=== PATIENT | male | born 1960 | race Caucasian/White ===

== ENCOUNTER 2019-06-24 05:30 | Inpatient (IN) | payer MEDICAID, OTHER ==
[~2019-06-24] VITALS: Ht 172.7 cm; Wt 67.1 kg
[2019-06-24] MEDS ORDERED: VANCOMYCIN PER PHARMACY MC ONE (06:00)
[2019-06-24] MEDS ORDERED: SODIUM CHLORIDE FLUSH 10ML SYR IVF ONE (06:00)
[2019-06-24] MEDS ORDERED: PIPERACILLIN/TAZO/PMX 3.375GM 50 ML IVPB ONE (06:00)
[2019-06-24] MEDS ORDERED: PIPERACILLIN/TAZO/PMX 3.375GM 50 ML ONE (06:10)
[2019-06-24] MEDS ORDERED: VANCOMYCIN 1,200 MG in SODIUM CHLORIDE 0.9% 250 ML IV ONE (06:30)
--- NOTE | 2019-06-24 06:32 | NUR ---
IV STARTED. AWAITING SECOND BC BEFORE STARTING ABX
[2019-06-24 06:34] LABS: BASOPHILS # (AUTO) 0.05 x10^3/uL (0-0.1); BASOPHILS % (AUTO) 0 % (0-1); EOSINOPHILS # (AUTO) 0.21 x10^3/uL (0-0.4); EOSINOPHILS % (AUTO) 2 % (1-7); LYMPHOCYTES # (AUTO) 1.69 x10^3/uL (1-3.4); LYMPHOCYTES % (AUTO) 13 % (22-44); MD NO; MEAN CORPUSCULAR HEMOGLOBIN 20.3 pg (27.5-34.5); MEAN CORPUSCULAR HGB CONC 30.8 g/dL (33.2-36.2); MEAN CORPUSCULAR VOLUME 66.2 fL (81-97); MEAN PLATELET VOLUME 7.6 fL (7.4-10.4); MONOCYTES # (AUTO) 1.16 x10^3/uL (0.2-0.8); MONOCYTES % (AUTO) 9 % (2-9); NEUTROPHILS # (AUTO) 9.79 x10^3/uL (1.8-6.8); NEUTROPHILS % (AUTO) 76 % (42-75); PLATELET COUNT 362 x10^3/uL (130-400); RED BLOOD COUNT 3.57 x10^6/uL (4.38-5.82); RED CELL DISTRIBUTION WIDTH 20.6 % (9.4-14.8)
--- NOTE | 2019-06-24 06:37 | NUR ---
CT PENDING LAB/CREATINE.
[2019-06-24 06:47] LABS: ALANINE AMINOTRANSFERASE 35 U/L (12-78); ALBUMIN 2.8 g/dL (3.4-5.0); ANION GAP 8 mmol/L (5-15); CHLORIDE 103 mmol/L (98-107); CREATININE 1.01 mg/dL (0.7-1.3); SALICYLATE LEVEL < 1.7 mg/dL (2.8-20.0)
[2019-06-24 06:52] LABS: ALKALINE PHOSPHATASE 69 U/L (45-117); BILIRUBIN,TOTAL 0.3 mg/dL (0.2-1.0); TOTAL PROTEIN 7.1 g/dL (6.4-8.2)
--- NOTE | 2019-06-24 06:53 | NUR ---
BEDSIDE REPORT FROM LAURA STUBBS, ZOSYN INFUSING, NEEDS VANCO AFTER. AWAITING CT SCAN. PT RESTING IN [facility] ON MONITOR WITH CALL LIGHT WITHIN REACH. NO NEEDS AT THIS TIME.
[2019-06-24] MEDS ORDERED: POTASSIUM CHLORIDE 20 MEQ TAB.ER.PRT ONE (07:21)
[2019-06-24] MEDS ORDERED: POTASSIUM CHLORIDE 20 MEQ TAB.ER.PRT PO ONE (07:30)
[2019-06-24] MEDS ORDERED: SODIUM CHLORIDE 0.9% 1,000ML IVBOLUS ONE (07:30)
--- NOTE | 2019-06-24 07:53 | NUR ---
PT RESTING IN [facility], IVF AND VANCO INFUSING. VSS ON RA. NO NEEDS AT THIS TIME. CALL LIGHT JARAD FARRAR. UDS COLLECTED AND WALKED TO LAB
[2019-06-24 08:20] LABS: AMPHETAMINE SCREEN, URINE Negative (Negative); BARBITURATE SCREEN, URINE Negative (Negative); BENZODIAZEPINE SCREEN, URINE Negative (Negative); CANNABINOID SCREEN, URINE Negative (Negative); COCAINE SCREEN, URINE Negative (Negative); METHADONE SCREEN, URINE Positive (Negative); OPIATE SCREEN, URINE Positive (Negative)
--- NOTE | 2019-06-24 08:45 | NUR ---
PT RESTING IN [facility], IV VANCO INFUSING, IVF BOLUS COMPLETE. AWAITING BED ASSIGNMENT. CALL LIGHT WITHIN REACH
--- NOTE | 2019-06-24 09:06 | NUR ---
REPORT TO ANA STUBBS
[2019-06-24 10:30] VITALS: BP 125/81
[2019-06-24] MEDS ORDERED: SODIUM CHLORIDE 0.9% 1,000 ML IV SCH (11:07)
[2019-06-24] MEDS ORDERED: CLINDAMYCIN PMX 900MG/50ML 50 ML IV SCH (11:30)
[2019-06-24] MEDS ORDERED: ONDANSETRON ODT 4 MG PO PRN (11:30)
[2019-06-24] MEDS ORDERED: morphine SULFATE 10 MG/ML, 1ML IVPush PRN (11:30)
[2019-06-24] MEDS ORDERED: PHARMACOKINETIC MONITORING MC PRN (11:30)
[2019-06-24] MEDS ORDERED: ONDANSETRON 2MG/ML, 2ML IVPush PRN (11:30)
[2019-06-24] MEDS: NICOTINE 21 MG/24 HR PATCH.TD24 TD SCH (11:30)
[2019-06-24] MEDS ORDERED: VANCOMYCIN PER PHARMACY MC PRN (11:30)
[2019-06-24] MEDS: PANTOPRAZOLE 40 MG IV IVPush SCH (11:54)
[2019-06-24] MEDS: AMPICILLIN/SULBACTAM 3 GM in SODIUM CHLORIDE 0.9% 100 ML IV SCH ×2 (11:54→18:40)
[2019-06-24 13:04] VITALS: BP 123/84
[2019-06-24] MEDS ORDERED: FENTANYL PF 250 MCG/5ML ONE (16:28)
[2019-06-24] MEDS ORDERED: PROPOFOL 10 MG/ML, 20ML ONE (16:47)
[2019-06-24] MEDS ORDERED: FENTANYL PF 100 MCG/2ML ONE (17:19)
[2019-06-24] MEDS ORDERED: OXYcodone 5 MG/5 ML ORAL.SOL UDC ONE (17:19)
[2019-06-24] MEDS ORDERED: HYDROmorphone 2 MG/ML, 1ML ONE (17:19)
[2019-06-24] MEDS: HYDROmorphone 2 MG/ML, 1ML IVPush PRN ×4 (17:22→17:40)
[2019-06-24] MEDS: FENTANYL PF 100 MCG/2ML IV PRN ×2 (17:22→17:28)
[2019-06-24] MEDS ORDERED: OXYcodone 5 MG/5 ML ORAL.SOL UDC PO PRN (17:30)
[2019-06-24] MEDS ORDERED: ACETAMINOPHEN 325 MG TABLET PO PRN (17:30)
[2019-06-24] MEDS ORDERED: hydrALAzine 20 MG/ML, 1ML IV PRN (17:30)
[2019-06-24] MEDS ORDERED: PROMETHAZINE 25 MG/ML, 1ML IV PRN (17:30)
[2019-06-24] MEDS ORDERED: HALOPERIDOL 5 MG/ML IV PRN (17:30)
[2019-06-24] MEDS ORDERED: MEPERIDINE/PF 25MG/ML,1ML IVPush PRN (17:30)
[2019-06-24] MEDS ORDERED: MEPERIDINE/PF 25MG/ML,1ML ONE (17:45)
[2019-06-24 18:34] VITALS: BP 141/79
[2019-06-24] MEDS ORDERED: HYDROmorphone 2 MG/ML, 1ML IVPush PRN (20:00)
[2019-06-24] MEDS ORDERED: ONDANSETRON 2MG/ML, 2ML IV PRN (20:00)
[2019-06-24] MEDS ORDERED: HYDROcodone/APAP 7.5-325MG/15ML UDC PO PRN (20:00)
[2019-06-24 20:02] LABS: HCT (SEDRATE) 23.2 % (39.2-51.8)
[2019-06-24] MEDS: DOCUSATE 100 MG CAPSULE PO SCH (20:16)
[2019-06-24] MEDS: KETOROLAC 30 MG/1 ML IV SCH (20:16)
[2019-06-25] VITALS (9 sets, daily range): BP systolic 110–133; BP diastolic 61–83
[2019-06-25] MEDS: AMPICILLIN/SULBACTAM 3 GM in SODIUM CHLORIDE 0.9% 100 ML IV SCH ×4 (00:28→19:38)
[2019-06-25] MEDS ORDERED: VANCOMYCIN 1,200 MG in SODIUM CHLORIDE 0.9% 250 ML IV ONE (01:00)
[2019-06-25] MEDS: CEFAZOLIN PMX 1GM/50ML 50 ML IVPB SCH ×2 (01:10→09:01)
[2019-06-25] MEDS: VANCOMYCIN 1,200 MG in SODIUM CHLORIDE 0.9% 250 ML IV SCH ×2 (01:43→20:36)
[2019-06-25] MEDS: KETOROLAC 30 MG/1 ML IV SCH ×2 (04:19→13:00)
[2019-06-25 05:49] LABS: MEAN CORPUSCULAR HEMOGLOBIN 20.2 pg (27.5-34.5); MEAN CORPUSCULAR HGB CONC 30.5 g/dL (33.2-36.2); MEAN CORPUSCULAR VOLUME 66.3 fL (81-97); MEAN PLATELET VOLUME 8.4 fL (7.4-10.4); PLATELET COUNT 278 x10^3/uL (130-400); RED BLOOD COUNT 3.38 x10^6/uL (4.38-5.82)
[2019-06-25 05:56] LABS: CHLORIDE 108 mmol/L (98-107)
[2019-06-25 06:12] LABS: ALANINE AMINOTRANSFERASE 28 U/L (12-78); ALBUMIN 2.3 g/dL (3.4-5.0); ALKALINE PHOSPHATASE 56 U/L (45-117); ANION GAP 6 mmol/L (5-15); BILIRUBIN,TOTAL 0.4 mg/dL (0.2-1.0); CALCIUM 7.2 mg/dL (8.5-10.1); CREATINE KINASE, TOTAL 482 U/L (39-308)
[2019-06-25 06:24] LABS: ANISOCYTOSIS 2+; BASOPHILS # (AUTO) 0.07 x10^3/uL (0-0.1); BASOPHILS % (AUTO) 1 % (0-1); EOSINOPHILS % (AUTO) 2 % (1-7); HYPOCHROMIA 2+; LYMPHOCYTES # (AUTO) 0.97 x10^3/uL (1-3.4); LYMPHOCYTES % (AUTO) 11 % (22-44); MD MORPH REVIEW ONLY; MICROCYTOSIS 2+; MONOCYTES # (AUTO) 0.97 x10^3/uL (0.2-0.8); MONOCYTES % (AUTO) 11 % (2-9); NEUTROPHILS # (AUTO) 6.45 x10^3/uL (1.8-6.8); NEUTROPHILS % (AUTO) 75 % (42-75); OVALOCYTES 1+; POLYCHROMASIA 1+
[2019-06-25 06:26] LABS: <PLATELET ESTIMATE> ADEQUATE; <PLT MORPHOLOGY> NORMAL PLT MORPH
[2019-06-25] MEDS: DOCUSATE 100 MG CAPSULE PO SCH ×2 (09:00→20:36)
[2019-06-25] MEDS: PANTOPRAZOLE 40 MG IV IVPush SCH (09:01)
[2019-06-25 09:05] LABS: % IRON SATURATION 4 % (20-55); IRON LEVEL 12 mcg/dL (65-175); TOTAL IRON BINDING CAPACITY 281 mcg/dL (250-450)
[2019-06-25] MEDS: IRON SUCROSE COMPLEX 100MG/5ML IV SCH (09:46)
[2019-06-25] MEDS ORDERED: POTASSIUM CHLORIDE 40 MEQ in SODIUM CHLORIDE 0.9% 1,000 ML IV SCH (11:07)
[2019-06-25] MEDS: NICOTINE 21 MG/24 HR PATCH.TD24 TD SCH (11:30)
[2019-06-25 13:44] LABS: OCCULT BLOOD NEGATIVE (NEGATIVE)
[2019-06-25] MEDS: POTASSIUM CHLORIDE 40 MEQ in SODIUM CHLORIDE 0.9% 1,000 ML IV SCH ×2 (15:16→21:57)
[2019-06-25] MEDS: OXYcodone 5 MG/5 ML ORAL.SOL UDC PO PRN (18:28)
[2019-06-26 00:41] VITALS: BP 120/68
[2019-06-26] MEDS: OXYcodone 5 MG/5 ML ORAL.SOL UDC PO PRN ×3 (00:42→20:31)
[2019-06-26] MEDS: AMPICILLIN/SULBACTAM 3 GM in SODIUM CHLORIDE 0.9% 100 ML IV SCH ×4 (01:16→20:58)
[2019-06-26] MEDS: POTASSIUM CHLORIDE 40 MEQ in SODIUM CHLORIDE 0.9% 1,000 ML IV SCH (04:56)
[2019-06-26] MEDS: PANTOPROZOLE 40MG TABLET PO SCH (06:00)
[2019-06-26] MEDS: IRON SUCROSE COMPLEX 100MG/5ML IV SCH (07:59)
[2019-06-26] MEDS: DOCUSATE 100 MG CAPSULE PO SCH ×2 (07:59→20:58)
[2019-06-26 09:38] VITALS: BP 138/87
[2019-06-26] MEDS ORDERED: ALBUTEROL/IPRATROPIUM 2.5MG/0.5MG, 3 ML NEB ONE (10:00)
[2019-06-26] MEDS ORDERED: FUROSEMIDE 20 MG/2 ML IV ONE (11:00)
[2019-06-26] MEDS: NICOTINE 21 MG/24 HR PATCH.TD24 TD SCH (11:45)
[2019-06-26] MEDS: VANCOMYCIN 1,200 MG in SODIUM CHLORIDE 0.9% 250 ML IV SCH (13:00)
[2019-06-26 14:05] VITALS: BP 117/67
[2019-06-26 18:50] VITALS: BP 151/81
[2019-06-27 00:09] VITALS: BP 127/78
[2019-06-27] MEDS: AMPICILLIN/SULBACTAM 3 GM in SODIUM CHLORIDE 0.9% 100 ML IV SCH ×2 (03:11→09:11)
[2019-06-27] MEDS: PANTOPROZOLE 40MG TABLET PO SCH (05:47)
[2019-06-27 07:53] VITALS: BP 135/82
[2019-06-27] MEDS: DOCUSATE 100 MG CAPSULE PO SCH ×2 (09:10→21:00)
[2019-06-27] MEDS: IRON SUCROSE COMPLEX 100MG/5ML IV SCH (09:11)
[2019-06-27] MEDS: OXYcodone 5 MG/5 ML ORAL.SOL UDC PO PRN (09:11)
[2019-06-27] MEDS: VANCOMYCIN 1,200 MG in SODIUM CHLORIDE 0.9% 250 ML IV SCH (10:50)
[2019-06-27 11:09] LABS: ANION GAP 7 mmol/L (5-15); CALCIUM 8.1 mg/dL (8.5-10.1); CHLORIDE 111 mmol/L (98-107)
[2019-06-27 11:10] LABS: MEAN CORPUSCULAR HEMOGLOBIN 20.8 pg (27.5-34.5); MEAN CORPUSCULAR HGB CONC 30.6 g/dL (33.2-36.2); MEAN CORPUSCULAR VOLUME 68.1 fL (81-97); MEAN PLATELET VOLUME 7.6 fL (7.4-10.4); PLATELET COUNT 263 x10^3/uL (130-400); RED BLOOD COUNT 3.72 x10^6/uL (4.38-5.82); RED CELL DISTRIBUTION WIDTH 22.6 % (9.4-14.8)
[2019-06-27 11:12] LABS: CREATININE 0.72 mg/dL (0.7-1.3); VANCOMYCIN,TROUGH 6.5 mcg/mL (5.0-10.0)
[2019-06-27 11:24] LABS: BASOPHILS # (AUTO) 0.06 x10^3/uL (0-0.1); BASOPHILS % (AUTO) 1 % (0-1); EOSINOPHILS # (AUTO) 0.19 x10^3/uL (0-0.4); EOSINOPHILS % (AUTO) 2 % (1-7); LYMPHOCYTES # (AUTO) 1.18 x10^3/uL (1-3.4); LYMPHOCYTES % (AUTO) 13 % (22-44); MD SCAN; MONOCYTES % (AUTO) 8 % (2-9); NEUTROPHILS # (AUTO) 6.86 x10^3/uL (1.8-6.8); NEUTROPHILS % (AUTO) 76 % (42-75)
[2019-06-27] MEDS: NICOTINE 21 MG/24 HR PATCH.TD24 TD SCH ×2 (11:30→12:56)
[2019-06-27 14:37] VITALS: BP 137/83
[2019-06-27] MEDS ORDERED: LINEZOLID PMX 600MG/300ML 300 ML IV SCH (15:00)
[2019-06-27] MEDS: CEFTRIAXONE PMX 1GM/50ML 50 ML IV SCH (15:46)
[2019-06-27] MEDS: DOXYCYCLINE 100 MG in DEXTROSE 5% 250 ML IV SCH (16:38)
[2019-06-27 19:45] VITALS: BP 155/73
[2019-06-28 03:53] VITALS: BP 133/68
[2019-06-28] MEDS: DOXYCYCLINE 100 MG in DEXTROSE 5% 250 ML IV SCH ×2 (04:56→16:41)
[2019-06-28] MEDS: PANTOPROZOLE 40MG TABLET PO SCH ×2 (04:57→05:02)
[2019-06-28] MEDS: DOCUSATE 100 MG CAPSULE PO SCH ×2 (08:57→19:52)
[2019-06-28] MEDS: IRON SUCROSE COMPLEX 100MG/5ML IV SCH (08:57)
[2019-06-28 09:59] VITALS: BP 132/76
[2019-06-28] MEDS: NICOTINE 21 MG/24 HR PATCH.TD24 TD SCH (11:30)
[2019-06-28] MEDS ORDERED: DOXY100T PO (14:59)
[2019-06-28] MEDS ORDERED: ACID1TAB3 PO (14:59)
[2019-06-28] MEDS ORDERED: AMOX1TAB64 PO (14:59)
[2019-06-28] MEDS: LACTOBACILLUS CHEW TABLET PO SCH ×2 (15:15→19:51)
[2019-06-28] MEDS: CEFTRIAXONE PMX 1GM/50ML 50 ML IV SCH (15:55)
[2019-06-28 15:59] VITALS: BP 141/76
[2019-06-28] MEDS: OXYcodone 5 MG/5 ML ORAL.SOL UDC PO PRN ×2 (16:03→22:01)
[2019-06-28 19:05] VITALS: BP 132/80
[2019-06-29 03:58] VITALS: BP 125/74
[2019-06-29] MEDS: DOXYCYCLINE 100 MG in DEXTROSE 5% 250 ML IV SCH (04:12)
[2019-06-29] MEDS: LACTOBACILLUS CHEW TABLET PO SCH (05:40)
[2019-06-29] MEDS: OXYcodone 5 MG/5 ML ORAL.SOL UDC PO PRN (05:40)
[2019-06-29] MEDS: PANTOPROZOLE 40MG TABLET PO SCH (05:40)
[2019-06-29 07:05] VITALS: BP 155/90
[2019-06-29] MEDS: DOCUSATE 100 MG CAPSULE PO SCH (09:00)
[2019-06-29] MEDS ORDERED: IRON SUCROSE COMPLEX 100MG/5ML IV SCH (09:00)
== END 2019-06-29 10:25 | disposition home or self-care (01) | DRG 854 ==
LOC: ED 08:12 → EDIP 08:36 → 3N 09:25
PROVIDERS: ADMIT Internal Medicine; ATTEND Internal Medicine
PROC: 0KBS0ZZ Excision of Right Lower Leg Muscle, Open Approach (ICD-10-PCS; principal; 2019-06-24 13:00)
PROC: 30233N1 Transfusion of Nonautologous Red Blood Cells into Peripheral Vein, Percutaneous Approach (ICD-10-PCS; 2019-06-25)
DX: A41.9 Sepsis, unspecified organism (principal); L02.415 Cutaneous abscess of right lower limb; L03.115 Cellulitis of right lower limb; M62.82 Rhabdomyolysis; F11.20 Opioid dependence, uncomplicated; B95.62 Methicillin resistant Staphylococcus aureus infection as the cause of diseases classified elsewhere; D50.0 Iron deficiency anemia secondary to blood loss (chronic); E87.6 Hypokalemia; F17.210 Nicotine dependence, cigarettes, uncomplicated; M72.9 Fibroblastic disorder, unspecified; F19.90 Other psychoactive substance use, unspecified, uncomplicated
CPT/HCPCS: 36415; 96365; 96367; 99291; J7620; 71045; 80048; 80053; 80202; 80307; 82272; 82550; 82728; 83540; 83550; 83605; 83735; 83880; 84443; 84466; 85014; 85018; 85025; 85651; 86850; 86900; 86923; 87040; 87070; 87075; 87077; 87186; 87205; 87389; 93922; 94640; G0378; J0295; J0690; J0696; J1170; J1756; J1885; J2543; J2704; J3010; J3370; J3480; J7060; C9113; J1940; J2175; J2270; J7030; J7050; P9016

== ENCOUNTER 2019-08-23 13:34 | Emergency (ER) | payer MEDICARE, MEDICAID ==
[~2019-08-23] VITALS: Ht 172.7 cm; Wt 59.8 kg
[~2019-08-23 13:34] MED LIST: ACID1TAB3 PO; AMOX1TAB64 PO; DOXY100T PO
[2019-08-23 13:40] VITALS: BP 134/78
[2019-08-23 14:37] LABS: BASOPHILS % (AUTO) 0 % (0-1); EOSINOPHILS # (AUTO) 0.01 x10^3/uL (0-0.4); EOSINOPHILS % (AUTO) 0 % (1-7); LYMPHOCYTES # (AUTO) 1.16 x10^3/uL (1-3.4); LYMPHOCYTES % (AUTO) 12 % (22-44); MD MORPH REVIEW ONLY; MEAN CORPUSCULAR HEMOGLOBIN 23.8 pg (27.5-34.5); MEAN CORPUSCULAR HGB CONC 32.1 g/dL (33.2-36.2); MEAN CORPUSCULAR VOLUME 74.1 fL (81-97); MEAN PLATELET VOLUME 7.9 fL (7.4-10.4); MONOCYTES # (AUTO) 0.24 x10^3/uL (0.2-0.8); MONOCYTES % (AUTO) 3 % (2-9); NEUTROPHILS # (AUTO) 8.13 x10^3/uL (1.8-6.8); NEUTROPHILS % (AUTO) 85 % (42-75); PLATELET COUNT 356 x10^3/uL (130-400); RED BLOOD COUNT 4.19 x10^6/uL (4.38-5.82); RED CELL DISTRIBUTION WIDTH 26.4 % (9.4-14.8)
[2019-08-23 15:01] LABS: ANISOCYTOSIS 1+; POLYCHROMASIA 1+
[2019-08-23 15:02] LABS: <PLATELET ESTIMATE> ADEQUATE; <PLT MORPHOLOGY> NORMAL PLT MORPH; HYPOCHROMIA 2+; OVALOCYTES 1+; TEAR DROPS 1+
--- NOTE | 2019-08-23 15:13 | NUR ---
REPORT GIVEN TO ENOC DRAKE.
== END 2019-08-23 16:31 | disposition home or self-care (01) ==
LOC: ED 15:30
DX: L03.115 Cellulitis of right lower limb (principal); F19.90 Other psychoactive substance use, unspecified, uncomplicated
CPT/HCPCS: 36415; 85025; 99284